=== PATIENT | female | born 1980 | race Hispanic/Latino ===

== ENCOUNTER 2016-12-16 22:09 | Outpatient (CLI) | payer BC ==
[2016-12-16 22:39] VITALS: BP 155/82
[2016-12-17 00:03] VITALS: BP 138/73
[2016-12-18] MEDS ORDERED: PRENATAL TABLE1 EAC3 PO (11:02)
== END 2016-12-17 00:50 | disposition home or self-care (01) ==
LOC: LDRP-OP 22:09 → 2WEST 22:10 → LDRP-OP 01-26 16:39
DX: O47.1 False labor at or after 37 completed weeks of gestation (principal); O46.8X3 Other antepartum hemorrhage, third trimester; O09.523 Supervision of elderly multigravida, third trimester; Z3A.38 38 weeks gestation of pregnancy
CPT/HCPCS: 59025; G0378

== ENCOUNTER 2016-12-18 10:36 | Inpatient (IN) | payer BC ==
[~2016-12-18] VITALS: Ht 154.9 cm; Wt 74.8 kg
[2016-12-18] VITALS (28 sets, daily range): BP systolic 93–142; BP diastolic 47–90
[2016-12-18] MEDS ORDERED: PRENATAL TABLE1 EAC3 PO (11:02)
[2016-12-18 12:21] LABS: EOSINOPHIL (%) 0.2 % (0-5); IMMATURE GRANULOCYTE (%) 0.8 % (0.0-0.7); IMMATURE GRANULOCYTE COUNT 0.1 K/uL; INSTRUMENT ABS NEUTROPHIL CT 10.6 K/uL; LYMPHOCYTE COUNT 1.5 K/uL (1.0-2.8); MCHC 34.4 G/DL (30.0-36.0); MCV 93.1 FL (83-99); MEAN PLAT.VOLUME 10.9 uM^3 (9.5-12.4); MONOCYTE (%) 6.1 % (3-12); MONOCYTE COUNT 0.8 K/uL (0-0.8); NEUTROPHIL (%) 81.3 % (45-76); NEUTROPHIL COUNT 10.6 K/uL (1.8-6.4); PLATELET COUNT 213 K/uL (156-360); RBC DIS.WIDTH-CV 12.9 % (11.8-14.6); RED BLOOD COUNT 4.19 M/uL (3.80-5.20)
[2016-12-19] VITALS (10 sets, daily range): BP systolic 106–128; BP diastolic 54–69
[2016-12-19] MEDS ORDERED: PERCOCET 5/31 TABLET PO (09:27)
[2016-12-19] MEDS ORDERED: MOTRIN800 MG PO (09:27)
[2016-12-20 03:31] VITALS: BP 105/57
[2016-12-20 07:18] VITALS: BP 107/53
[2016-12-20 08:21] LABS: EOSINOPHIL (%) 0.7 % (0-5); EOSINOPHIL COUNT 0.1 K/uL (0-0.3); HEMATOCRIT 34.7 % (36.0-46.0); IMMATURE GRANULOCYTE COUNT 0.2 K/uL; INSTRUMENT ABS NEUTROPHIL CT 12.5 K/uL; LYMPHOCYTE COUNT 1.2 K/uL (1.0-2.8); MCH 31.7 PG (29.0-34.0); MCHC 32.9 G/DL (30.0-36.0); MCV 96.4 FL (83-99); MEAN PLAT.VOLUME 10.7 uM^3 (9.5-12.4); MONOCYTE (%) 3.2 % (3-12); MONOCYTE COUNT 0.5 K/uL (0-0.8); NEUTROPHIL (%) 86.5 % (45-76); NEUTROPHIL COUNT 12.5 K/uL (1.8-6.4); PLATELET COUNT 164 K/uL (156-360); RBC DIS.WIDTH-CV 13.2 % (11.8-14.6); RBC DIS.WIDTH-SD 47.4 % (39-53); WHITE BLOOD COUNT 14.5 K/uL (4.1-10.2)
[2016-12-20 12:02] VITALS: BP 112/58
[2016-12-20 15:23] VITALS: BP 106/54
[2016-12-21 08:00] VITALS: BP 122/56
[2016-12-21 16:00] VITALS: BP 110/59
[2016-12-22 07:53] VITALS: BP 125/73
[2016-12-23 08:46] VITALS: BP 109/69
== END 2016-12-23 14:20 | disposition home or self-care (01) | DRG 766 ==
LOC: LDRP-OP 10:36 → 2WEST 10:38 → LDRP-OP 01-26 01:04
PROVIDERS: Obstetrics & Gynecology
DX: O41.1230 Chorioamnionitis, third trimester, not applicable or unspecified (principal); O62.9 Abnormality of forces of labor, unspecified; Z37.0 Single live birth; Z3A.39 39 weeks gestation of pregnancy; O77.0 Labor and delivery complicated by meconium in amniotic fluid
CPT/HCPCS: 59025; 85025; 88307; 90686; C1755; G0378; J0295; J0690; J1100; J2175; J2270; J2274; J2405; J3010; J7050; J7120